=== PATIENT | male | born 1950 | race Caucasian/White ===

== ENCOUNTER 2020-10-07 10:51 | Outpatient (CLI) | payer OTHER, SELFPAY ==
[2020-10-07 11:21] VITALS: BP 165/68; PULSE 80; RESP 14; TEMP 36.4; O2SAT 97
[2020-10-07] MEDS: PEMBROLIZUMAB 200 MG in SODIUM CHLORIDE 0.9% IV 100 ML IVPB (11:36)
[2020-10-07] MEDS: HEPARIN SOD FLUSH 500 UNITS/5 ML SYRINGE IV PUSH (12:15)
[2020-10-07 12:21] VITALS: BP 159/62; PULSE 78; RESP 14; TEMP 36.9; O2SAT 96
[2020-10-07 12:27] VITALS: BMI 23.3
--- NOTE | 2020-10-07 12:35 | PC.NURSE ---
Patient here for cycle 1 of 8 q 21day IV chemo. Education given on medications etc. Concerns answered. Labs received from [facility] and reviewed and ok'd. Chemo regimen administered. Patient tolerated chemo well. Safe exit of hospital. Will return October 28, 2020 for cycle 2.CRISS
== END 2020-10-07 10:52 | disposition home or self-care (01) ==
LOC: CHSTREATRM 10:58
PROVIDERS: Visit Provider Internal Medicine Hematology & Oncology
DX: Z51.11 Encounter for antineoplastic chemotherapy (principal); C64.1 Malignant neoplasm of right kidney, except renal pelvis
CPT/HCPCS: 96413; J9271; J9305

== ENCOUNTER 2020-10-28 10:25 | Outpatient (CLI) | payer OTHER, SELFPAY ==
[2020-10-28 10:49] VITALS: BP 117/67; PULSE 68; RESP 14; TEMP 36.6; O2SAT 97
[2020-10-28] MEDS: PEMBROLIZUMAB 200 MG in SODIUM CHLORIDE 0.9% IV 100 ML IVPB (11:09)
[2020-10-28] MEDS: SODIUM CHLORIDE 0.9% IV 250 ML 50 ML IVPB (11:10)
[2020-10-28] MEDS: HEPARIN SOD FLUSH 500 UNITS/5 ML SYRINGE IV PUSH (11:49)
[2020-10-28 12:02] VITALS: BP 130/70; PULSE 72; RESP 16; O2SAT 97
--- NOTE | 2020-10-28 12:03 | PC.NURSE ---
Patient here for #2 chemo Keytruda infusion. Labs reviewed and ok'd. No concerns voiced. Patient trying to keep up nutrition. Keytruda infusion administered. Patient tolerated well. Safe exit of hospital. Will return November 18 for cycle #3. Labs will be done in [facility].
== END 2020-10-28 10:26 | disposition home or self-care (01) ==
LOC: CHSLAB 10:30 → CHSTREATRM 10:43
PROVIDERS: Visit Provider Internal Medicine Hematology & Oncology
DX: Z51.11 Encounter for antineoplastic chemotherapy (principal)
CPT/HCPCS: 96413; J7050; J9271

== ENCOUNTER 2020-11-18 10:20 | Outpatient (CLI) | payer OTHER, SELFPAY ==
[2020-11-18 10:42] VITALS: BP 125/70; PULSE 69; RESP 14; TEMP 36.6; O2SAT 98
[2020-11-18] MEDS: PEMBROLIZUMAB 200 MG in SODIUM CHLORIDE 0.9% IV 100 ML IVPB (10:53)
[2020-11-18 10:59] VITALS: BMI 24.7
--- NOTE | 2020-11-18 11:06 | PC.NURSE ---
Patient here for #3 of 8 IV Keytruda chemo. Labs reviewed that were done at outside hospital. Ok'd. No real change in weight. Appetite has improved since last chemo. Keytruda IV chemo administered. Tolerated well. Safe exit of hospital. Will return December 09, 2020 at 1030 for #4.
[2020-11-18] MEDS: HEPARIN SOD FLUSH 500 UNITS/5 ML SYRINGE IV PUSH (11:31)
[2020-11-18 11:32] VITALS: BP 175/68; PULSE 68; RESP 14; O2SAT 97
== END 2020-11-18 10:21 | disposition home or self-care (01) ==
LOC: CHSTREATRM 10:24
PROVIDERS: Visit Provider Internal Medicine Hematology & Oncology
DX: Z51.11 Encounter for antineoplastic chemotherapy (principal); C64.1 Malignant neoplasm of right kidney, except renal pelvis
CPT/HCPCS: 96413; J7050; J9271

== ENCOUNTER 2020-12-16 10:34 | Outpatient (CLI) | payer OTHER, SELFPAY ==
--- NOTE | 2020-12-16 10:45 | PC.NURSE ---
Pt to [facility] amb with friend. A&Ox3. Has no questions, concerns or complaints. Oriented to area. Port accessed without difficulty. Call mckeon in reach. Reminded to voice needs.
[2020-12-16] MEDS: PEMBROLIZUMAB 200 MG in SODIUM CHLORIDE 0.9% IV 92 ML IVPB (11:12)
--- NOTE | 2020-12-16 11:12 | PC.NURSE ---
Keytruda infusion started. Pt tolerating well. Has no complaints.
[2020-12-16] MEDS: SODIUM CHLORIDE 0.9% IV 250 ML 10 ML IVPB (11:13)
[2020-12-16 11:31] VITALS: BP 165/75; PULSE 59; RESP 20; TEMP 36.7; O2SAT 99
[2020-12-16] MEDS: HEPARIN SODIUM LOCK FLUSH 500 UNITS/5 ML SYRINGE IV PUSH (11:39)
--- NOTE | 2020-12-16 11:50 | PC.NURSE ---
Keytruda infused without difficulty. Pt tolerated well. Has no questions or concerns. Discharged to home ambulatory with friend.
== END 2020-12-16 10:35 | disposition home or self-care (01) ==
LOC: CHSTREATRM 10:37
PROVIDERS: Visit Provider Internal Medicine Hematology & Oncology
DX: Z51.11 Encounter for antineoplastic chemotherapy (principal); C64.1 Malignant neoplasm of right kidney, except renal pelvis
CPT/HCPCS: 96413; J9271

== ENCOUNTER 2021-01-06 10:27 | Outpatient (CLI) | payer OTHER, SELFPAY ==
[2021-01-06 10:49] VITALS: BP 106/68; PULSE 68; RESP 12; TEMP 36.4; O2SAT 99
[2021-01-06 10:52] VITALS: BMI 21.2
[2021-01-06] MEDS: PEMBROLIZUMAB 200 MG in SODIUM CHLORIDE 0.9% IV 100 ML IVPB (11:02)
[2021-01-06] MEDS: SODIUM CHLORIDE 0.9% IV 250 ML 40 ML IVPB (11:02)
[2021-01-06] MEDS: HEPARIN SODIUM LOCK FLUSH 500 UNITS/5 ML SYRINGE IV PUSH (11:03)
[2021-01-06 11:54] VITALS: BP 124/74; PULSE 58; RESP 14; TEMP 36.4; O2SAT 98
--- NOTE | 2021-01-06 11:56 | PC.NURSE ---
Patient here for cycle 5 of 8 Keytruda chemo therapy. Labs from [facility] received and ok'd per Dr. Toledo. Reinstructed on chemo-Keytruda and side effects. Encouraged po fluids. Patient complains of fatigue. No other concerns at this time. Chemo therapy administered. SEE MAR. Tolerated well. Will return January 27, 2021 1030. Safe exit of hospital escorted by cousin.
== END 2021-01-06 10:28 | disposition home or self-care (01) ==
LOC: CHSTREATRM 10:30
PROVIDERS: Visit Provider Internal Medicine Hematology & Oncology
DX: Z51.11 Encounter for antineoplastic chemotherapy (principal); C64.1 Malignant neoplasm of right kidney, except renal pelvis
CPT/HCPCS: 96413; J7050; J9271

== ENCOUNTER 2021-02-12 10:27 | Outpatient (CLI) | payer OTHER, SELFPAY ==
[2021-02-12 10:42] VITALS: BP 102/60; PULSE 72; RESP 14; TEMP 36.6; O2SAT 98
[2021-02-12 10:43] VITALS: BMI 20.7
[2021-02-12] MEDS: HEPARIN SODIUM LOCK FLUSH 500 UNITS/5 ML SYRINGE IV PUSH (11:31)
[2021-02-12 11:38] VITALS: BP 100/59; PULSE 68; RESP 14; TEMP 37.1; O2SAT 98
--- NOTE | 2021-02-12 11:39 | PC.NURSE ---
Patient here for IV CHEMO Keytruda #1 of 8 q 6 weeks. Labs reviewed from outside hospital. Ok'd. Patient has had this chemo regimen prior, it was just on hold for few weeks. No concerns voiced. IV chemo administered. Tolerated well. Safe exit of hospital.
== END 2021-02-12 10:28 | disposition home or self-care (01) ==
LOC: CHSLAB 10:29 → CHSTREATRM 10:30
PROVIDERS: Visit Provider Internal Medicine Hematology & Oncology
DX: Z51.11 Encounter for antineoplastic chemotherapy (principal); C64.1 Malignant neoplasm of right kidney, except renal pelvis
CPT/HCPCS: 96413; J9271

== ENCOUNTER 2021-03-24 10:24 | Outpatient (CLI) | payer OTHER, SELFPAY ==
[2021-03-24] MEDS: SODIUM CHLORIDE 0.9% IV 1,000 ML 500 ML IVPB (10:25)
[2021-03-24 10:41] VITALS: BP 110/69; PULSE 80; RESP 16; TEMP 36.3; O2SAT 98
[2021-03-24 10:42] VITALS: BMI 19.2
[2021-03-24 12:49] VITALS: BP 128/60; PULSE 78; RESP 14; O2SAT 97
[2021-03-24] MEDS: HEPARIN SODIUM LOCK FLUSH 500 UNITS/5 ML SYRINGE IV PUSH (12:52)
--- NOTE | 2021-03-24 12:54 | PC.NURSE ---
Patient here for q 6 weeks cycle 2 of 8 Keytruda chemo infusion. Re educated on medication. Reports had covid booster 2 weeks ago and hasn't felt good since. Saw Dr. Toledo yesterday. Had labs in [place]. OK'd by Dr. Toledo for chemo. Dr. Toledo also wanted him to have 1 Liter of Normal saline also. Chemo Keytruda administered along with 1 L NS via patent port a cath. SEE MAR. Tolerated both well. Reported felt a little Perkier . Will return 2020 for Cycle 3. Safe exit of hospital.
== END 2021-03-24 10:25 | disposition home or self-care (01) ==
LOC: CHSTREATRM 10:26
PROVIDERS: Visit Provider Internal Medicine Hematology & Oncology
DX: Z51.11 Encounter for antineoplastic chemotherapy (principal); C64.1 Malignant neoplasm of right kidney, except renal pelvis
CPT/HCPCS: 96360; 96361; 96413; J7030; J9271